=== PATIENT | female | born 1960 | race African-American/Black ===

== ENCOUNTER 2025-03-27 09:22 | Outpatient (AMB) | payer OTHER, SELFPAY ==
--- NOTE | 2025-03-27 09:41 | A.PHYSOV_ITS ---
Vital Signs 03/27/25 09:44 Height 56 ft Weight 150 lb BMI 0.2 Intake Visit Reasons: NPV LAURIE REF BACK PAIN Intake Note: Patient is a 65 year old female here today for a new patient appointment . Patient is having low back pain. 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 She initially injured her back in the , and the pain resolved after therapy but has recurred in recent months. The pain is localized to the lower back and pelvis, without leg radiation, and is worsened by sitting. She manages the pain with Tylenol, which provides some relief, and has discontinued physical therapy due to increased pain and cost. 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 She finds that her symptoms limit her ability to perform her activities of daily living. She has a pain level today a 6/10. She denies any incontinence, saddle anesthesia urinary retention. I reviewed the referring provider's note prior to consultation. Results - Imaging: X-ray lumbar spine 12/25/2004 impression: Degenerative changes have progressed since the previous study. The images were reviewed by me and I agree with the radiology report. [facility] Surgical History H/O: hysterectomy (Unknown) Social History (Updated 03/27/25 @ 09:47 by Antonia Kingsley MA) Alcohol intake: current Alcohol intake frequency: does not drink Patient Tobacco Use Status: Never used Tobacco Current occupational status: employed Review of Systems Narrative Review of Systems - Musculoskeletal: Reports chronic low back pain, denies leg pain - Neurological: Denies radicular symptoms Physical Exam Exam Exam: Physical Exam Lumbar Spine: Examination of her lumbar spine, there is no visible swelling or deformity. She is tender to lower lumbar facet. She is otherwise nontender. Full range of motion of lumbar spine. She does have facet loading. Special Tests: Lhermittes sign was negative Heel Toe walk is normal Left straight leg raise: Negative Right straight leg raise: Negative Special tests Orville test is negative Ganslen's test is negative SI Joint compression test negative Parmjit test negative Piriformis stretch is negative Lower Extremities: Full range of motion bilateral lower extremities. No calf pain or edema. Neuro: Sensation: Intact to lower extremities bilaterally Strength L2 (Psoas): 5/5 on the left and 5/5 on the right. L3 (Quads): 5/5 on the left and 5/5 on the right. L4 (Ant tibialis): 5/5 on the left and 5/5 on the right. L5 (EHL) 5/5 on the left and 5/5 on the right. S1 (Gastroc): 5/5 on the left and 5/5 on the right. DTR L4: (Patellar) Left 2 Right 2 S1: (Achilles) Left 1 Right 1 Babinski Downgoing No pathologic clonus. No involuntary movement. 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 1. Chronic Low Back Pain The patient presents with chronic low back pain, initially injured in the and recently recurring. An MRI is recommended to evaluate the discs and nerves, as the X-ray only shows bone structure. The patient is advised to continue exercises learned in therapy and consider natural anti-inflammatory supplements like turmeric. Patient started physical therapy on January. She was unable to complete secondary to financial issues. She has been completing her physician directed home exercise plan and consents. She finds that her symptoms limit her ability to perform her activities of daily living, we are considering epidural injection versus surgery. Recommend MRI of the lumbar spine Patient Instructions - Continue exercises learned in physical therapy to maintain activity levels. - Consider using turmeric as a natural anti-inflammatory supplement. Orders: Orders MR lumbar spine wo con Today M51.16 - Intervertebral disc disorders with radiculopathy, lumbar region Coding Level of Care Code Tele New Pt Level 4 (46060) Diagnoses Lumbar radiculopathy M54.16 Lumbar spondylosis M47.816
--- OUTSIDE RECORDS SUMMARY | 2025-03-27 10:43 | XMS_ITS | Encounter Summary ---
Author Organization [facility] Address [address] [place] [address] Care Team Providers Care Enrobing Machine Corder Name Role Phone Florencia Traore MD Primary Care Provider [phone] Encounter Details Date Type Department Care Team (Late Contact Info) Description 03/19/2025 Results Follow-Up [address] [place] [id number] Donna Daniel RN Social History Tobacco Use Types Packs/Day Years Used Date Smoking Tobacco: Never Smokeless Tobacco: Never Alcohol Use Standard Drinks/Week Comments Yes 0 (1 standard drink = 0.6 oz pur e alcohol) Comments No Sex and Gender Information Value Date Recorded Sex Assigned at Not on file Legal Sex Female 8:35 PM EST Gender Identity Not on file Sexual Orientation Not on file documented as of this encounter Progress Notes * Donna Daniel RN - 03/19/2025 2:40 PM EST LM for patient. documented in this encounter Plan of Treatment Upcoming Encounters Date Type Department Care Team (Late st Contact Info) Description 06/24/2025 8:30 AM EST Office Visit Internal Medicine - [address] [phone] Scott Reddy NP [address] [place] [address] 09/16/2025 1:00 PM EDT Office Visit Infectious Disease [facility] [address] [facility] [address] [place] [phone] Stephie Neely MD [address] [facility] [address] [place] [address] documented as of this encounter Visit Diagnoses Not on filedocumented in this encounter Care Teams Enrobing Machine Corder Relationship Specialty Start Date End Date Florencia Traore MD [address] [place] [phone] PCP - General Internal Medicine 02/07/25 documented as of this encounter
--- OUTSIDE RECORDS SUMMARY | 2025-03-27 10:43 | XMS_ITS | Clinical Summary ---
Author Organization [address] [place] [address] [place] [phone] Phone Care Team Providers Care Veneer Taping Machine Offbearer Name Role Phone Florencia Traore MD Primary Care Provider [phone] Allergies Active Allergy Reactions Criticality Noted Date Comments Oxycodone-Acetaminophen Itching 01/03/2006 Medications B complex tablet Take 1 tablet by mouth 1 (one) time each day. Active ascorbic acid, vitamin C, 500 mg capsule Take 1 capsule by mouth. Active albuterol HFA (ProAir HFA) 90 mcg/actuation inhaler Inhale 2 puffs by mouth every 4 (four) hours if needed for wheezing or shortness of breath. 8.5 g 04/23/20 24 025 Active cholecalciferol , vitamin D3, 10 mcg (400 unit) tablet,chewable Chew 1 tablet 1 (one) time each day. Active acetaminophen (TYLENOL 8 HOUR) 650 mg 8 hr tablet Take 1 tablet (650 mg total) by mouth every 8 (eight) hours if needed. 03/12/20 21 Active cetirizine (ZyrTEC) 10 mg tablet Take 1 tablet (10 mg total) by mouth 1 (one) time each day. 14 each 05/03/20 24 Active fluticasone propionate (FLONASE) 50 mcg/actuation nasal spray Administer 1 spray into each nostril 2 (two) times a day. Shake gently. Before first use, prime pump. After use, clean tip and replace cap. 16 g 05/03/20 24 Active diclofenac (Cataflam) 50 mg tablet Take 1 tablet (50 mg total) by mouth 2 (two) times a day for 10 days. 20 each 08/01/19 25 Active methocarbamoL (ROBAXIN) 500 mg tablet Take 1 tablet (500 mg total) by mouth at bedtime as needed for muscle spasms. 30 tablet 08/01/19 25 Active triamcinolone (KENALOG) 0.025 % creamIndication s:Eczema, unspecified type Apply topically 1 (one) time each day if needed for irritation. 30 g 12/20/19 25 Active aspirin 81 mg chewable tabletIndicatio ns:Atherosclero sis Chew 1 tablet (81 mg total) 1 (one) time each day. 90 each 1 12/27/19 25 Active atorvastatin (LIPITOR) 10 mg tabletIndicatio ns:Hyperlipidem ia, unspecified TAKE 1 TABLET BY MOUTH 1 TIME EACH DAY. 90 tablet 1 02/12/20 25 Active amLODIPine (NORVASC) 10 mg tablet TAKE 1 TABLET BY MOUTH EVERY DAY 90 tablet 1 03/05/20 25 Active amoxicillin (AMOXIL) 500 mg capsule TAKE 1 CAPSULE BY MOUTH EVERY 6 HOURS UNTIL FINISHED 01/03/20 25 Active tretinoin (RETIN-A) 0.1 % cream APPLY PEA-SIZED AMOUNT TO FACE AT BEDTIME 04/24/20 24 Active triamcinolone (KENALOG) 0.1 % ointment APPLY TO ARMS/ABDOMEN/L EGS 2X/DAY NEEDED FOR FLARES, DECREASE TO EVERY OTHER DAY W/IMPROVEMENT 10/24/19 25 Active amLODIPine (NORVASC) 10 mg tablet TAKE 1 TABLET BY MOUTH 1 TIME EACH DAY. 90 tablet 12/03/19 25 025 Discontinued Active Problems Problem Noted Date Diagnosed Date Atherosclerosis 12/26/2024 Overview (12/26/2024): On lumbosacral x-ray in 12/2024; currently on a statin, started baby aspirin Hypertension 04/20/2021 Tubular adenoma of colon 03/24/2021 Overview (04/30/2024): 03/2021, tubular adenona x 3. 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 Nuclear sclerosis 02/15/2011 Hemorrhage of gastrointestinal tract 04/24/2006 Overview (04/30/2024): IMO update Encounters Date Type Department Care Team Description 03/20/2025 Results Follow-Up Internal Medicine - [address] [phone] Theresa Bourne MA 03/19/2025 8:56 AM EST - 03/19/2025 11:59 PM EST Hospital Encounter Radiology Department - [address] [phone] Encounter for screening mammogram for breast cancer Discharge Disposition: Home or Self Care 03/19/2025 Results Follow-Up Infectious Disease [address] [phone] Donna Daniel RN 03/13/2025 1:50 PM EDT Lab Draw Station - [address] [place] [address] [address] [place] [address] 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 PM EDT Office Visit Infectious [address] [phone] Stephie Neely MD 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/2025 Telephone Internal Medicine - [facility] [address] [place] [address] Florencia Traore MD 02/06/2025 5:30 PM EDT Treatment [facility] [address] [phone] Jarrett Peralta, JAY Back pain, unspecified back location, unspecified back pain laterality, unspecified chronicity (Primary Dx) 01/30/2025 6:00 PM EDT Treatment [facility] [address] [phone] Trey, Donovan M, JOINT RUNNER Back pain, unspecified back location, unspecified back pain laterality, unspecified chronicity (Primary Dx) 01/27/2025 3:30 PM EDT Treatment [address] [phone] Elver Upton M, PT Back pain, unspecified back location, unspecified back pain laterality, unspecified chronicity (Primary Dx) 01/23/2025 9:00 AM EDT Evaluation [address] [address] BrownRony, PT Back pain, unspecified back location, unspecified back pain laterality, unspecified chronicity 01/23/2025 Plan of Care Documentation [address] [phone] 12/25/2024 3:02 PM EDT - 12/25/2024 11:59 PM EDT Hospital [facility]counter [facility] [address] [place] [phone] Back pain, unspecified back location, unspecified back pain laterality, unspecified chronicity Discharge Disposition: Home or Self Care from Last 3 Months Immunizations Immunization Administration Dates Next Due Influenza Quadravalent, MDCK , 0.5ml, preservative free (Flucelvax) 6mo and older 01/29/2020,03/19/2019,02/14/2017 Influenza trivalent, 0.5mL ( Fluzone High-dose) 65yo and older 01/31/2025 Influenza trivalent, 0.5mL, preservative free (Fluarix; FluLaval; Fluzone) ages 6mo and older (Afluria) 3 years and older 01/24/2023,02/07/2022,03/19/2021,2015,04/16/2012 Pfizer SARS-CoV-2 COVID-19, mRNA, LNP-S, preservative free 08/27/2020,08/06/2020 Td Tetanus diptheria (Tdvax) 7yo and older 06/26/2002 Tdap Tetanus diptheria acell ular pertussis (Boostrix; Adacel) 7yo and older 02/07/2022,12/19/2011 Zoster recombinant (Shingrix ) 19yo and older 04/13/2021,12/17/2020 Surgical History Surgery Date Site/Laterality Comments HYSTERECTOMY 06/18 PROCEDURE: HISTORICAL HYSTERECTOMY; COMMENT: ; fibroids OTHER SURGICAL HISTORY 06/20 PROCEDURE: MAMMOGRAM; COMMENT: neg Medical History Medical History Date Comments Hyperlipidemia 01/07/2012 DX:Hyperlipidemi a Obesity (BMI 30.0-34.9) 11/29/2019 DX:Obesi ty (BMI 30.0-34.9) Hypertension DX:Hypertension Tubular adenoma of colon 03/24/2021 DX:Tubu lar adenoma of colon; COMMENT: 03/2021, tubular adenona x 3. Repeat in 5 years Tubular adenoma of colon 03/24/2021 DX:Tubu lar adenoma of colon Hypertension 04/20/2021 DX:Hypertension Hypertension 04/20/2021 Family History Medical History Relation Name Comments Stroke Aunt pat Arthritis Father Diabetes Father Hypertension Father Lung cancer Father ? lung CA being treated for spots on lung Thyroid disease Father Hypertension Mother Throat cancer Uncle paternal uncle Blindness Neg Hx Breast cancer Neg Hx Cataracts Neg Hx Glaucoma Neg Hx Macular degeneration Neg Hx Strabismus Neg Hx Relation Name Status Comments Aunt Father Alive Mother Alive Uncle Social History Tobacco Use Types Packs/Day Years Used Date Smoking Tobacco: Never Smokeless Tobacco: Never Tobacco Cessation:Counseling Given: Not Answered Alcohol Use Standard Drinks/Week Comments Yes 0 (1 standard drink = 0.6 oz pur e alcohol) Comments No Sex and Gender Information Value Date Recorded Sex Assigned at Not on file Legal Sex Female 8:35 PM EST Gender Identity Not on file Sexual Orientation Not on file Obstetrics History Para Term AB IAB SAB Ectopic Multiple Livin g Live Births 1 05 15 1 Date Outcome GA Total Labor Labor/2nd/3rd Weight Sex Type Anes PTL Jasmyne A1 A5 Name Clin Term Last Filed Vital Signs Vital Sign Reading Time Taken Comments Blood Pressure 146/71 03/13/2025 1:07 PM EDT Pulse 60 03/13/2025 1:07 PM EDT Temperature 36.2 C (97.1 F) 03/13/2025 1:07 PM EDT Respiratory Rate - - Oxygen Saturation 97% 03/13/2025 1:07 PM EDT Inhaled Oxygen Concentration - - Weight 73 kg (161 lb) 03/13/2025 1:07 PM EDT Height 167.6 cm (5' 6 ) 12/19/2024 12:07 PM EDT Body Mass Index 25.99 12/19/2024 12:07 PM EDT Plan of Treatment Upcoming Encounters Date Type Department Care Team (Late st Contact Info) Description 06/24/2025 8:30 AM EST Office Visit Internal Medicine - [facility] [address] [place] [address] Scott Reddy, AMISHA [address] [place] [address] 09/16/2025 1:00 PM EDT Office Visit Infectious Disease - [place] [address] [facility] [address] [place] [address] Stephie Neely MD 175 [facility] [address] [place] [address] Health Maintenance Due Date Last Done Comments Pneumococcal Vaccine: 50+ Years (1 of 1 - PCV) 2009 Osteoporosis Screening (Bone Density Screening) 04/23/2022 Social Influencers of Health Screening 04/23/2022 Falls Risk Assessment 2024 Depression Screening 05/15/2024 COVID-19 Vaccine ( season) 2025 03/17/2021, 08/27/2020, 08/06/2020 Hypertension/CHF/CAD Annual BMP Blood Test 12/19/2025 12/19/2024, 09/05/2024, 06/04/2024, Additional history exists Colorectal Cancer Screening: Colonoscopy 03/16/2026 03/16/2021 Breast Cancer Screening 03/19/2027 03/19/20, 02/21/2024, 02/21/2024, Additional history exists Cholesterol Screening (Lipid Panel) 12/19/2029 12/19/2024, 03/07/2024, 03/07/2024 DTaP,Tdap,and Td Vaccines (4 - Td or Tdap) 02/08/2032 02/07/2022, 12/19/2011, 06/26/2002 Zoster Vaccines Completed 04/13/2021, 12/17/2020 RSV Immunization Adult Patients Completed 01/23/2024 Hepatitis C Screening Completed 06/04/2024, 015 Influenza Vaccine Completed 01/31/2025, , 01/24/2023, Additional history exists HIB Vaccines Aged Out No longer eligi ble based on patient's age to complete this topic HPV Vaccines Aged Out No longer eligi ble based on patient's age to complete this topic Hepatitis A Vaccines Aged Out No long er eligible based on patient's age to complete this topic Hepatitis B Vaccines Aged Out No long er eligible based on patient's age to complete this topic IPV Vaccines Aged Out No longer eligi ble based on patient's age to complete this topic MMR Vaccines Aged Out No longer eligi ble based on patient's age to complete this topic Meningococcal ACWY Vaccine Aged Out N o longer eligible based on patient's age to complete this topic Meningococcal B Vaccine Aged Out No l onger eligible based on patient's age to complete this topic RSV Immunization Patients Under 20 months Aged Out No longer eligible based on patient's age to complete this topic Varicella Vaccines Aged Out No longer eligible based on patient's age to complete this topic Procedures Procedure Name Priority Date/Time Associated Diagnosis Comments MG MAMMO DIGITAL SCREENING W NITO BILAT Routine 03/19/2025 9:09 AM EST Encounter for screening mammogram for breast cancer TREPONEMA PALLIDUM ANTIBODY Routine 03/13/2025 1:46 PM EDT Late latent syphilis RAPID PLASMA REAGIN WITH REFLEX TO TITER Routine 03/13/2025 1:46 PM EDT Late latent syphilis TREPONEMA PALLIDUM ANTIBODY WITH REFLEX TO RPR AND PARTICLE AGGLUTINATION Routine 03/13/2025 1:46 PM EDT Late latent syphilis XR LUMBAR SPINE 4+ VIEWS Routine 12/25/2024 3:11 PM EDT Back pain, unspecified back location, unspecified back pain laterality, unspecified chronicity COMPREHENSIVE METABOLIC PANEL Routine 12/19/2024 1:00 PM EDT Hyperlipidemia, unspecified hyperlipidemia type Primary hypertension LIPID PANEL WITH REFLEX TO DIRECT LDL Routine 12/19/2024 1:00 PM EDT Hyperlipidemia, unspecified hyperlipidemia type HEPATITIS C ANTIBODY Routine 06/04/2024 3:29 PM EST Positive serology for syphilis Late latent syphilis HM COLONOSCOPY Routine 03/16/2021 from Last 3 Months or Most Recently Relevant to Health Maintenance Results * MG Mammo Digital Screening w Nito bilat (03/19/2025 9:09 AM EST) Anatomical Region Laterality Modality Breast Bilateral Mammography 03/20/2025 11:2 8 AM EST Impressions 03/20/2025 11:28 AM EST No mammographic evidence of malignancy. BREAST DENSITY: B - There are scattered areas of fibroglandular density. BI-RADS CATEGORY: 1 - NEGATIVE RECOMMENDATION: Screening bilateral mammogram is recommended in 1 year. MAMMO LOCATION: [facility], [address] [place] [address], [phone], . -------- FINAL REPORT -------- Dictated By: Crystal Wells Dictated Date: 03/20/2025 11:28 ET Assigned Physician: Crystal Wells Reviewed and Electronically Signed By: Crystal Wells Signed Date: 03/20/2025 11:28 ET Workstation ID: [id number] Transcribed By: Self Edit Transcribed Date: 03/20/2025 11:28 ET Narrative 03/20/2025 11:28 AM EST EXAM: Screening Mammogram CLINICAL: 65 years old, Female, routine annual exam. COMPARISON: 02/21/2024 and as far back as 01/28/2021 TECHNIQUE: Bilateral MLO and CC views were obtained digitally with 3-D mammogram (digital breast tomosynthesis). Computer-aided detection was utilized in evaluation of this exam (CAD). FINDINGS: No new suspicious mass, architectural distortion, or suspicious calcifications. Procedure Note Crystal Wells MD - 03/20/2025 EXAM: Screening Mammogram CLINICAL: 65 years old, Female, routine annual exam. COMPARISON: 02/21/2024 and as far back as 01/28/2021 TECHNIQUE: Bilateral MLO and CC views were obtained digitally with 3-Dmammogram (digital breast tomosynthesis). Computer-aided detection wasutilized in evaluation of this exam (CAD). FINDINGS: No new suspicious mass, architectural distortion, or suspiciouscalcifications. IMPRESSION: No mammographic evidence of malignancy. BREAST DENSITY: B - There are scattered areas of fibroglandular density. BI-RADS CATEGORY: 1 - NEGATIVE RECOMMENDATION: Screening bilateral mammogram is recommended in 1 year. MAMMO LOCATION: [facility], [address] [place] [address], [phone], . -------- FINAL REPORT -------- Dictated By: Crystal Wells Dictated Date: 03/20/2025 11:28 ET Assigned Physician: Crystal Wells Reviewed and Electronically Signed By: Crystal Wells Signed Date: 03/20/2025 11:28 ET Workstation ID: [id number] Transcribed By: Self Edit Transcribed Date: 03/20/2025 11:28 ET us Uziel Guerrero MD IMG BI PROCEDURES Final R esult * (ABNORMAL) Treponema pallidum antibody with reflex to RPR and particle agglutination (03/13/2025 1:46 PM EDT) T. Pallidum Antibodies Positive( A) Negative LAB CHEMISTRY METHOD 03/13/2025 6:42 PM EDT [facility] ([facility]) [facility] Blood Venous blood specimen / Unknown Venipuncture / Unknown 03/13/2025 1:46 PM EDT 03/13/2025 1:46 PM EDT us Stephie Neely MD LAB BLOOD ORDERABLES Final Resul t [facility] [address] [place] [address], [place] [phone] * Rapid plasma reagin with reflex to titer (03/13/2025 1:46 PM EDT) RPR Nonreactive Nonreactive 2025 1:26 PM EDT [facility] Blood Venous blood specimen / Unknown Venipuncture / Unknown 03/13/2025 1:46 PM EDT 03/13/2025 6:42 PM EDT us Stephie Neely MD LAB BLOOD ORDERABLES Final Resul t Performing Organization Address [facility] Co de Phone Number [facility] [address] [place] [address], [place] [phone] * (ABNORMAL) Treponema pallidum antibody (03/13/2025 1:46 PM EDT) Pathologist [facility] Treponema pallidum Antibody (TP-PA) Reactive( A) Nonreactive 03/17/2025 1:25 PM EST [facility] Comment: Test performed at [facility], [address], [place] [address] Catherine Pascual MD, PhD - Web Coordinator Blood Venous blood specimen / Unknown Venipuncture / Unknown 03/13/2025 1:46 PM EDT 2025 1:25 PM EDT us Stephie Neely MD LAB BLOOD ORDERABLES Final Resul t [facility] [address] [place], [place] [id number] * XR Lumbar Spine 4+ Views (12/25/2024 3:11 PM EDT) Anatomical Region Laterality Modality Spine, L-spine Radiographic Alessia ging 12/25/2024 4:04 PM EDT Impressions 12/25/2024 4:06 PM EDT Degenerative changes have progressed since the previous study. -------- FINAL REPORT -------- Dictated By: Roula Cohn Dictated Date: 12/25/2024 16:04 ET Assigned Physician: Roula Cohn Reviewed and Electronically Signed By: Roula Cohn Signed Date: 12/25/2024 16:06 ET Workstation ID: [id number] Transcribed By: Self Edit Transcribed Date: 12/25/2024 16:04 ET Narrative 12/25/2024 4:06 PM EDT LUMBOSACRAL SPINE, 5 VIEWS INCLUDING OBLIQUES HISTORY: Back pain. Prior: Lumbar spine 11/22/2011. FINDINGS: There is straightening of the normal lordotic curve. No fractures are seen. There is disc space narrowing with endplate spurring and disc desiccation at L2- 3, L3-4, L4-5, and L5-S1. There is facet hypertrophy at the lower lumbar spine. There is atherosclerosis. Procedure Note Roula Cohn MD - 12/25/2024 LUMBOSACRAL SPINE, 5 VIEWS INCLUDING OBLIQUES HISTORY: Back pain. Prior: Lumbar spine 11/22/2011. FINDINGS: There is straightening of the normal lordotic curve. No fractures are seen. There is disc space narrowing with endplate spurring and disc desiccationat L2- 3, L3-4, L4-5, and L5-S1. There is facet hypertrophy at the lower lumbar spine. There is atherosclerosis. IMPRESSION: Degenerative changes have progressed since the previous study. -------- FINAL REPORT -------- Dictated By: Roula Cohn Dictated Date: 12/25/2024 16:04 ET Assigned Physician: Roula Cohn Reviewed and Electronically Signed By: Roula Cohn Signed Date: 12/25/2024 16:06 ET Workstation ID: [id number] Transcribed By: Self Edit Transcribed Date: 12/25/2024 16:04 ET us Scott Reddy IT APPLICATIONS MANAGER IMG XR PROCEDURES Final Result * Lipid panel with reflex to direct LDL (12/19/2024 1:00 PM EDT) Cholesterol 166 0 - 200 mg/dL LAB CHEMISTRY METHOD 12/19/2024 4:49 PM EDT [facility] Triglycerides 32 0 - 150 mg/dL LAB CHEMISTRY METHOD 12/19/2024 4:49 PM EDT [facility] HDL 72 >=40 mg/dL LAB CHEMISTRY METHOD 12/19/2024 4:49 PM EDT [facility] LDL Calculated 88 0 - 100 mg/dL LAB CHEMISTRY METHOD 12/19/2024 4:49 PM EDT [facility] Comment:Estimated LDL Calcul ated using equation: Total cholesterol - HDL cholesterol - (Triglycerides/5) VLDL Cholesterol Román 6.4 mg/dL LAB CHEMISTRY METHOD 12/19/2024 4:49 PM EDT [facility] Non HDL Chol. (LDL+VLDL) 94 <145 mg/dL LAB CHEMISTRY METHOD 12/19/2024 4:49 PM EDT [facility] Chol/HDL Ratio 2.3 0.0 - 4.4 LAB CHEMISTRY METHOD 12/19/2024 4:49 PM EDT [facility] Blood Venous blood specimen / Unknown Venipuncture / Unknown 12/19/2024 1:00 PM EDT 12/19/2024 1:00 PM EDT us Scott Reddy NP LAB BLOOD ORDERABLES Final Res ult [facility] [address] [place] [address], * (ABNORMAL) Comprehensive metabolic panel (12/19/2024 1:00 PM EDT) [facility] Sodium 141 133 - 145 mmol/L LAB CHEMISTRY METHOD 12/19/2024 4:46 PM EDT [facility] Potassium 4.2 3.5 - 5.5 mmol/L LAB CHEMISTRY METHOD 12/19[facility]2024 [facility] Chloride 107 96 - 110 mmol/L LAB CHEMISTRY METHOD 12/19/2024 4:46 PM [facility] CO2 31 21 - 32 mmol/L LAB CHEMISTRY METHOD 12/19/2024 4:46 PM [facility] Anion Gap 3 3 - 11 LAB CHEMISTRY METHOD 12/19/2024 4:46 PM [facility] Glucose 85 70 - 100 mg/dL LAB CHEMISTRY METHOD 12/19/2024 4:46 PM [facility] BUN 15 5 - 25 mg/dL LAB CHEMISTRY METHOD 12/19/2024 4:46 PM [facility] Creatinine 0.40(L) 0.50 - 1.10 mg/dL LAB CHEMISTRY METHOD 12/19/2024 4:46 PM [facility] eGFR 110 >=60 mL/min/1. 73m2 LAB CHEMISTRY METHOD 12/19/2024 4:46 PM [facility] Comment:Calculation based on the Chronic Kidney Disease Epidemiology Collaboration (CKD-EPI) equation refit without adjustment for race. BUN/Creatinine Ratio 37.5 LAB CHEMISTRY METHOD 12/19/2024 4:46 PM [facility] Calcium 9.2 8.5 - 10.5 mg/dL LAB CHEMISTRY METHOD 12/19/2024 4:46 PM [facility] AST (SGOT) 17 10 - 42 unit/L LAB CHEMISTRY METHOD 12/19/2024 4:46 PM [facility] ALT (SGPT) 25 10 - 60 unit/L LAB CHEMISTRY METHOD 12/19/2024 4:46 PM [facility] Alkaline Phosphatase 91 42 - 121 unit/L LAB CHEMISTRY METHOD 12/19/2024 4:46 PM [facility] Total Protein 6.7 6.0 - 8.0 g/dL LAB CHEMISTRY METHOD 12/19/2024 4:46 PM [facility] Albumin 3.9 3.2 - 5.0 g/dL LAB CHEMISTRY METHOD 12/19/2024 4:46 PM EDT [facility] Total Bilirubin 0.4 0.0 - 1.4 mg/dL LAB CHEMISTRY METHOD 12/19/2024 4:46 PM EDT [facility] Blood Venous blood specimen / Unknown Venipuncture / Unknown 12/19/2024 1:00 PM EDT 12/19/2024 1:00 PM EDT Scott Reddy NP LAB BLOOD ORDERABLES Final Res ult Performing Organization Address City/[facility]/ZIP Co de Phone Number [facility] [address] [place] [address], [place] [phone] * Hepatitis C antibody (06/04/2024 3:29 PM EST) Hepatitis C Antibody Negative Negative LAB CHEMISTRY METHOD 06/04/2024 7:50 PM EST [facility] Blood Venous blood specimen / Unknown Venipuncture / Unknown 06/04/2024 3:29 PM EST 06/04/2024 3:29 PM EST Stephie Neely MD LAB BLOOD ORDERABLES Final Resul t Performing Organization Address City/[facility]/ZIP Co de Phone Number [facility] [address] [place] [address], [place] [phone] * Hm Colonoscopy (03/16/2021) Colonoscopy completed Anatomical Region Laterality Modality Other Historical Provider HEALTH MAINTENANCE Final Result from Last 3 Months or Most Recently Relevant to Health Maintenance Insurance [facility] [id number] [id number] Care Teams Veneer Taping Machine Offbearer Relationship Specialty Start Date End Date Florencia Traore MD [address] [facility] [place] [address] PCP - General Internal Medicine 02/07/25
--- OUTSIDE RECORDS SUMMARY | 2025-03-27 10:43 | XMS_ITS | Encounter Summary ---
Author Organization [facility] Address [address] [place] [address] Care Team Providers Care Group Leader Wafer Polishing Name Role Phone Florencia Traore MD Primary Care Provider [phone] Encounter Details Date Type Department Care Team (Late st Contact Info) Description 03/20/2025 Results Follow-Up Internal Medicine - [address] [phone] Theresa Bourne MA Social History Tobacco Use Types Packs/Day Years [...] on file documented as of this encounter Plan of Treatment Upcoming Encounters Date Type Department Care Team (Late st Contact Info) Description 06/24/2025 8:30 AM EST Office Visit Internal Medicine - [address] [phone] Scott Reddy NP [address] [place] [address] 09/16/2025 1:00 PM EDT Office Visit Infectious Disease - [place] [address] [phone] Stephie Neely MD [address] [address] documented as of this encounter Visit Diagnoses Not on filedocumented in this encounter Care Teams Group Leader Wafer Polishing Relationship Specialty Start Date End Date Florencia Traore MD [address] [facility] [place] [phone] PCP - General Internal Medicine 02/07/25 documented as of this encounter
== END 2025-03-27 10:46 | disposition home or self-care (01) ==
PROVIDERS: Visit Provider Physician Assistant
DX: M54.16 Radiculopathy, lumbar region (principal); M47.816 Spondylosis without myelopathy or radiculopathy, lumbar region
CPT/HCPCS: 99204

== ENCOUNTER 2025-05-12 15:05 | Outpatient (AMB) | payer OTHER, SELFPAY ==
--- NOTE | 2025-05-12 15:39 | A.PHYSOV_ITS ---
Intake Visit Reasons: MRI followup Intake Note: Patient is a 65 year old female here today for MRI follow up. Liberal Arts Teacher Required: No Allergies No Known Allergies Allergy (Verified 03/27/25 09:45) HPI Comments Details: History of Present Illness The patient is a 65 year old female presenting for evaluation of low back pain. She reports an increase in her back pain over the last few days, which was particularly severe last night. The pain is localized to the central low back and does not radiate into her buttocks or legs. She occasionally experiences a burning sensation in her back after sitting for a while, which improves upon lying down. She also reports intermittent pain under her stomach. She currently takes Tylenol for pain but states she does not like taking pills. Patient did complete a 6 week physician directed home exercise plan focusing on her low back without relief. Patient has been using Tylenol for pain. A review of her MRI reveals moderate degenerative disc disease with some severe areas, squished discs, and arthritis. There is severe bilateral foraminal narrowing and severe narrowing on the left at one level. The patient is not on blood thinners. I ordered MRI of her lumbar spine and we are reviewing it in person today. Pain Description - Location: The pain is located in the central low back. - Radiation: The pain does not radiate to the buttocks or legs. - Quality: The patient describes the pain as a burning sensation at times. - Severity: The patient rates her pain as lots of pain and reports it has been really bad recently. - Modifying factors: The pain is exacerbated by leaning backward and by sitting for a prolonged period. - Relieving factors: Lying down helps to alleviate the burning sensation. - Associated Symptoms: The patient reports intermittent pain under her stomach. Results - Imaging: An MRI of the back showed moderate degenerative disc disease with some severe areas, squished discs, arthritis, severe bilateral foraminal narrowing, and severe narrowing on the left at one level. [facility] Surgical History H/O: hysterectomy (Unknown) Social History Alcohol intake: current Alcohol intake frequency: does not drink Patient Tobacco Use Status: Never used Tobacco Current occupational status: employed Review of Systems Narrative Review of Systems - Musculoskeletal: Reports central low back pain, sometimes with a burning quality. - Neurological: Denies radiating pain to the legs or buttocks. - Abdominal: Reports intermittent pain under the stomach. Physical Exam Exam Exam: Physical Exam Lumbar Spine: Examination of her lumbar spine, there is no visible swelling or deformity. She is tender to lower lumbar facet. She is otherwise nontender. Full range of motion of lumbar spine. She does have facet loading. Special Tests: Lhermittes sign was negative Heel Toe walk is normal Left straight leg raise: Negative Right straight leg raise: Negative Special tests Orville test is negative Ganslen's test is negative SI Joint compression test negative Parmjit test negative Piriformis stretch is negative Lower Extremities: Full range of motion bilateral lower extremities. No calf pain or edema. Neuro: Sensation: Intact to lower extremities bilaterally Strength L2 (Psoas): 5/5 on the left and 5/5 on the right. L3 (Quads): 5/5 on the left and 5/5 on the right. L4 (Ant tibialis): 5/5 on the left and 5/5 on the right. L5 (EHL) 5/5 on the left and 5/5 on the right. S1 (Gastroc): 5/5 on the left and 5/5 on the right. DTR L4: (Patellar) Left 2 Right 2 S1: (Achilles) Left 1 Right 1 Babinski Downgoing No pathologic clonus. No involuntary movement. Assessment & Plan Assessment & Plan (1) Lumbar radiculopathy: Code(s): M54.16 - Radiculopathy, lumbar region Category: Medical (2) Lumbar spondylosis: Code(s): M47.816 - Spondylosis without myelopathy or radiculopathy, lumbar region Category: Medical (3) Vertebrogenic low back pain: Code(s): M54.51 - Vertebrogenic low back pain Category: Medical Plan Pain Management - Analgesia: The patient currently uses Tylenol, and options of Tylenol Arthritis or anti-inflammatory medications like naproxen and ibuprofen were discussed. - Activities of daily living: Pain impacts the patient's ability to sit for extended periods. - Aberrant drug-related behaviors: The patient expressed a dislike for taking too many pills. Plan Patient was informed and verbally consented to the use of an ambient scribe for clinic note documentation during this visit. 1. Low Back Pain The patient's axial low back pain is consistent with her MRI findings of moderate degenerative disc disease and arthritis, with pain on extension suggesting facet joint involvement. I recommend bilateral L4-5, L5-S1 facet injection and she is eager to proceed. Despite severe foraminal narrowing, she does not exhibit radicular symptoms. The plan is to proceed with lumbar medial branch block injections to target her arthritis. This will consist of four cortisone injections performed under X-ray guidance on the same day, with the goal of at least 50% pain reduction for 3-6 months. Prior authorization will be obtained from her insurance. For interim pain management, she can use Tylenol or anti-inflammatories like naproxen or ibuprofen. A follow-up visit is scheduled for 3 weeks after the procedure. 2. Abdominal Pain, Unspecified The patient reports intermittent pain under her stomach. It is unlikely that this symptom is related to her lumbar spine condition. She was advised to see her PLANT ANATOMY TEACHER or a infant toddler lead teacher for further evaluation. We will observe if her abdominal pain changes after the back injections, although a connection is not anticipated. Discussion Notes I reviewed the patient's MRI findings with her, explaining that she has moderate degenerative disc disease and arthritis, which are the likely causes of her low back pain. I noted that while there is severe narrowing where the nerves exit, it does not appear to be causing nerve pain in her legs. We discussed treatment options, and the patient expressed interest in proceeding with injections. I explained that the plan is to target her arthritis with cortisone injections, which will involve four separate injections performed on the same day. I informed her that the goal is to achieve at least a 50% reduction in her pain for three to six months. I reviewed the risks of the procedure, including infection, bleeding, and nerve damage, and explained that it is performed under X-ray guidance to ensure safety. I advised that we will seek insurance authorization prior to scheduling. I also addressed her concern about abdominal pain, explaining that it is unlikely to be related to her low back condition and recommended she follow up with her PLANT ANATOMY TEACHER or a infant toddler lead teacher. I reassured her that her MRI findings are not severe enough to warrant consideration of surgery at this time. She will have a follow-up visit with me three weeks after the injection procedure. Patient Instructions - For pain, you can take Tylenol, or you may try an anti-inflammatory medication like ibuprofen (Advil, Motrin) or naproxen (Aleve) to see if it provides better relief. - Our office will request authorization from your insurance company for cortisone injections for your back. - Once the injections are approved, our staff will contact you to schedule the appointment. - The procedure will involve four injections on the same day and will be performed in our office. You will likely want to take that day off. - Please follow up with your primary doctor or a specialist like an PLANT ANATOMY TEACHER for the pain you are having under your stomach, as this is likely not related to your back. - You will need to schedule a follow-up appointment with me three weeks after your injection procedure. Coding Level of Care Code Est Pt Level 3 (69133) Diagnoses Lumbar radiculopathy M54.16 Lumbar spondylosis M47.816 Vertebrogenic low back pain M54.51
--- OUTSIDE RECORDS SUMMARY | 2025-05-12 17:21 | XMS_ITS ---
Author Organization [address] [place] [address] [place] [phone] Phone Care Team Providers Care Joint Filler Name Role Phone Florencia Traore MD Primary Care Provider Community Health Worker Program Status:Identified (Enrolling) Start date:05/02/2025 Enrollment reason:Hypertension management Overview Community Health Worker Program Case Team Name Relationship Phone Yamel Gusman(Responsible Staff) Community Hea lth Worker Continued Care and Services Coordination
--- OUTSIDE RECORDS SUMMARY | 2025-05-12 17:21 | XMS_ITS ---
Author Name [facility] Organization Unknown History of Medication Use Medication Directions Dispensed Refills Start Date End Date Stat us guaiFENesin (ROBITUSSIN) 100 mg/5 mL liquid Take 10 mL (200 mg total) by mouth 3 (three) times a day if needed for cough for up to 10 days. 05/23/2024 06/03/2024 active amLODIPine (NORVASC) 10 mg tablet Take 1 tablet (10 mg total) by mouth 1 (one) time each day. 05/23/2024 active cetirizine (ZyrTEC) 10 mg tablet Take 1 tablet (10 mg total) by mouth 1 (one) time each day. 05/03/2024 active fluticasone propionate (FLONASE) 50 mcg/actuation nasal spray Administer 1 spray into each nostril 2 (two) times a day. Shake gently. Before first use, prime pump. After use, clean tip and replace cap. 05/03/2024 active albuterol HFA (ProAir HFA) 90 mcg/actuation inhaler Inhale 2 puffs by mouth every 4 (four) hours if needed for wheezing or shortness of breath. 04/23/2024 active triamcinolone (KENALOG) 0.025 % cream Apply as needed 2times daily not more than 1 week 03/07/2024 active acetaminophen (TYLENOL 8 HOUR) 650 mg 8 hr tablet Take 1 tablet (650 mg total) by mouth every 8 (eight) hours if needed. 03/12/2021 active ascorbic acid, vitamin C, 500 mg capsule Take 1 capsule by mouth. active atorvastatin (LIPITOR) 10 mg tablet Take 1 tablet (10 mg total) by mouth 1 (one) time each day. active B complex tablet Take 1 tablet by mouth 1 (one) time each day. active cholecalciferol, vitamin D3, 10 mcg (400 unit) tablet,chewable Chew 1 tablet 1 (one) time each day. 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 ProblemAct [facility] Hypertension active 2021-04-20 ProblemAct [facility] Obesity (BMI 30.0-34.9) active 2019-11-29 ProblemAct [facility] Nuclear sclerosis active 2011-02-15 ProblemAct [facility] Tubular adenoma of colon active 2021-03-24 ProblemAct [facility] H/O: hysterectomy active 2012-04-23 ProblemAct [facility] Atherosclerosis active 2024-12-[address] [facility] H/O: hysterectomy active 2012-04-23 ProblemAct [facility] Hyperlipidemia active 2012-01-07 ProblemAct [facility] Immunizations Vaccine Date Source Lot Number Status Influenza trivalent, 0.5mL ( Fluzone High-dose) 65yo and older [id number] comple maryanne Influenza trivalent, 0.5mL, preservative free (Fluarix; FluLaval; Fluzone) ages 6mo and older (Afluria) 3 years and older 01/24/2023 [facility] completed Influenza trivalent, 0.5mL, preservative free (Fluarix; FluLaval; Fluzone) ages 6mo and older (Afluria) 3 years and older 02/07/2022 [facility] completed Tdap Tetanus diptheria acell ular pertussis (Boostrix; Adacel) 7yo and older 02/07/2022 [facility] [id number] completed Zoster recombinant (Shingrix ) 19yo and older 04/13/2021 [facility] [id number] completed Influenza trivalent, 0.5mL, preservative free (Fluarix; FluLaval; Fluzone) ages 6mo and older (Afluria) 3 years and older 03/19/2021 [facility] completed Zoster recombinant (Shingrix ) 19yo and older 12/17/2020 [facility] [id number] completed [email or web address] SARS-CoV-2 COVID-19, mRNA, LNP-S, preservative free 08/27/2020 [facility] [id number] completed [email or web address] SARS-CoV-2 COVID-19, mRNA, LNP-S, preservative free 08/06/2020 [facility] [id number] completed Influenza Quadravalent, MDCK , 0.5ml, preservative free (Flucelvax) 6mo and older 01/29/2020 [id number] completed Influenza Quadravalent, MDCK , 0.5ml, preservative free (Flucelvax) 6mo and older 03/19/2019 [facility] [id number] completed Influenza Quadravalent, MDCK , 0.5ml, preservative free (Flucelvax) 6mo and older 02/14/2017 [facility] [id number] completed Influenza trivalent, 0.5mL, preservative free (Fluarix; FluLaval; Fluzone) ages 6mo and older (Afluria) 3 years and older 02/02/2016 [facility] [id number] completed Influenza trivalent, 0.5mL, preservative free (Fluarix; FluLaval; Fluzone) ages 6mo and older (Afluria) 3 years and older 04/16/2012 [facility] [id number] completed Tdap Tetanus diptheria acell ular pertussis (Boostrix; Adacel) 7yo and older 12/19/2011 [facility] [id number] completed Td Tetanus diptheria (Tdvax) 7yo and older 06/26/2002 [facility] completed
--- OUTSIDE RECORDS SUMMARY | 2025-05-12 17:21 | XMS_ITS | Encounter Summary ---
Author Organization [facility] Address [address] [place] [address] Care Team Providers Care Ground Support Equipment Fitter Name Role Phone Florencia Traore MD Primary Care Provider [phone] Encounter Details Date Type Department Care Team (Late Contact Info) Description 03/19/2025 Results Follow-Up [address] [place] [phone] Donna Daniel RN Social History Tobacco Use [...] AM EST Office Visit Internal Medicine - [address] [phone] Scott Reddy NP [address] [place] [address] 09/16/2025 1:00 PM EDT Office Visit Infectious Disease [facility] 175 [facility] [address] [place] [phone] Stephie Neely MD 175 [facility] [address] [place] [address] documented as of this encounter Visit Diagnoses Not on filedocumented in this encounter Care Teams Ground Support Equipment Fitter Relationship Specialty Start Date End Date Florencia Traore MD [address] [place] [phone] PCP - General Internal Medicine 02/07/25 documented as of this encounter
--- OUTSIDE RECORDS SUMMARY | 2025-05-12 17:21 | XMS_ITS | Encounter Summary ---
Author Organization [facility] Address [address] [place] [address] Care Team Providers Care Bronze Plater Name Role Phone Florencia Traore MD Primary Care Provider [phone] Encounter Details Date Type Department Care Team (Late st Contact Info) Description 03/20/2025 Results Follow-Up Internal Medicine - [address] [phone] Theresa Bourne MA Social History Tobacco Use [...] AM EST Office Visit Internal Medicine - [address] [phone] Scott Reddy NP [address] [place] [address] 09/16/2025 1:00 PM EDT Office Visit Infectious Disease - [place] [address] [phone] Stephie Neely MD [address] [address] documented as of this encounter Visit Diagnoses Not on filedocumented in this encounter Care Teams Bronze Plater Relationship Specialty Start Date End Date Florencia Traore MD [address] [facility] [phone] PCP - General Internal Medicine 02/07/25 documented as of this encounter
--- OUTSIDE RECORDS SUMMARY | 2025-05-12 17:21 | XMS_ITS | Clinical Summary ---
Author Organization [address] [place] [address] [place] [phone] Phone Care Team Providers Care Process Planner Name Role Phone Florencia Traore MD Primary Care Provider [phone] Allergies Active Allergy Reactions Criticality Noted Date [...] wheezing or shortness of breath. 8.5 g 4 Active cholecalciferol, vitamin D3, 10 mcg (400 unit) tablet,chewable Chew 1 tablet 1 (one) time each day. Active acetaminophen (TYLENOL 8 HOUR) 650 mg 8 hr tablet Take 1 tablet (650 mg total) by mouth every 8 (eight) hours if needed. 1 Active cetirizine (ZyrTEC) 10 mg tablet Take 1 tablet (10 mg total) by mouth 1 (one) time each day. 14 each 4 Active fluticasone propionate (FLONASE) 50 mcg/actuation nasal spray Administer 1 spray into each nostril 2 (two) times a day. Shake gently. Before first use, prime pump. After use, clean tip and replace cap. 16 g 4 Active diclofenac (Cataflam) 50 mg tablet Take 1 tablet (50 mg total) by mouth 2 (two) times a day for 10 days. 20 each 5 Active methocarbamoL (ROBAXIN) 500 mg tablet Take 1 tablet (500 mg total) by mouth at bedtime as needed for muscle spasms. 30 tablet 5 Active triamcinolone (KENALOG) 0.025 % creamIndications :Eczema, unspecified type Apply topically 1 (one) time each day if needed for irritation. 30 g 5 Active aspirin 81 mg chewable tabletIndication s:Atherosclerosi s Chew 1 tablet (81 mg total) 1 (one) time each day. 90 each 1 5 Active atorvastatin (LIPITOR) 10 mg tabletIndication s:Hyperlipidemia , unspecified TAKE 1 TABLET BY MOUTH 1 TIME EACH DAY. 90 tablet 1 5 Active amLODIPine (NORVASC) 10 mg tablet TAKE 1 TABLET BY MOUTH EVERY DAY 90 tablet 1 5 Active amoxicillin (AMOXIL) 500 mg capsule TAKE 1 CAPSULE BY MOUTH EVERY 6 HOURS UNTIL FINISHED 5 Active tretinoin (RETIN-A) 0.1 % cream APPLY PEA-SIZED AMOUNT TO FACE AT BEDTIME 4 Active triamcinolone (KENALOG) 0.1 % ointment APPLY TO ARMS/ABDOMEN/LE GS 2X/DAY NEEDED FOR FLARES, DECREASE TO EVERY OTHER DAY W/IMPROVEMENT 5 Active Active Problems Problem Noted Date Diagnosed Date [...] Encounters Date Type Department Care Team Description 04/28/2025 Telephone Infectious Disease - [facility] [address] [place] [address] Stevan Draper MA 04/03/2025 6:20 PM EST - 04/03/2025 11:59 PM EST Hospital Encounter Radiology Department - [address] [place] [address] Intervertebral disc disorders with radiculopathy, lumbar region Discharge Disposition: Home or Self Care 03/20/2025 Results Follow-Up Internal Medicine - [address] [phone] Theresa Bourne MA 03/19/2025 8:56 AM EST - 03/19/2025 11:59 PM EST Hospital Encounter Radiology Department - [address] [phone] Encounter for screening mammogram for breast cancer Discharge Disposition: Home or Self Care 03/19/2025 Results Follow-Up Infectious Disease - [address] [phone] Donna Daniel RN 03/13/2025 1:50 PM EDT Lab Draw Station - [address] [place] [phone] 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 PM EDT Office Visit Infectious Disease - [address] [phone] Stephie Neely MD Late latent syphilis (Primary Dx) from Last 3 Months Immunizations Immunization Administration [...] Ectopic Multiple Livin g Live Births 1 1 1 1 Date Outcome GA Total Labor Labor/2nd/3rd [...] AM EST Office Visit Internal Medicine - [address] [phone] Scott Reddy, AMISHA [address] [place] [address] 09/16/2025 1:00 PM EDT Office Visit Infectious Disease - [place] [address] [phone] Stephie Neely MD 175 [facility] [address] [place] [address] Health Maintenance Due Date Last Done Comments [...] Procedure Name Priority Date/Time Associated Diagnosis Comments MR LUMBAR SPINE WO CONTRAST Routine 04/03/2025 8:03 PM EST Intervertebral disc disorders with radiculopathy, lumbar region MG MAMMO DIGITAL SCREENING W NITO BILAT Routine 03/19/2025 9:09 AM EST Encounter for screening mammogram for breast cancer TREPONEMA PALLIDUM ANTIBODY Routine 03/13/2025 1:46 PM EDT Late latent syphilis RAPID PLASMA REAGIN WITH REFLEX TO TITER Routine 03/13/2025 1:46 PM EDT Late latent syphilis TREPONEMA PALLIDUM ANTIBODY WITH REFLEX TO RPR AND PARTICLE AGGLUTINATION Routine 03/13/2025 1:46 PM EDT Late latent syphilis COMPREHENSIVE METABOLIC PANEL Routine 12/19/2024 1:00 PM EDT Hyperlipidemia, unspecified hyperlipidemia type Primary hypertension LIPID PANEL WITH REFLEX TO DIRECT LDL Routine 12/19/2024 1:00 PM EDT Hyperlipidemia, unspecified hyperlipidemia type HEPATITIS C ANTIBODY Routine 06/04/2024 3:29 PM EST Positive serology for syphilis Late latent syphilis HM COLONOSCOPY Routine 03/16/2021 from Last 3 Months or Most Recently Relevant to Health Maintenance Results * MR Lumbar Spine wo Contrast (04/03/2025 8:03 PM EST) Anatomical Region Laterality Modality L-spine, Spine Magnetic Resonan ce 04/09/2025 4:09 PM EST Impressions 04/09/2025 4:17 PM EST Impression: Multilevel degenerative changes of the lumbar spine with moderate spinal canal stenosis at L2-L3, L3-L4 and L4-L5. -------- FINAL REPORT -------- Dictated By: Karina Frederick Dictated Date: 04/09/2025 16:09 ET Assigned Physician: Karina Frederick Reviewed and Electronically Signed By: Karina Frederick Signed Date: 04/09/2025 16:17 ET Workstation ID: [id number] Transcribed By: Self Edit Transcribed Date: 04/09/2025 16:09 ET Narrative 04/09/2025 4:17 PM EST MRI LUMBAR SPINE Clinical Statement: low back pain Comparison: None Technique: Multiplanar, multisequence MRI images of the lumbar spine were obtained without intravenous contrast. Findings: There is normal lumbar lordosis. There is preservation of vertebral body height. Mildly heterogeneous vertebral body marrow signal consistent with degenerative changes. Disc desiccation at multiple levels with disc height loss at L2-L3, L3-L4 and L4-L5. Cord signal is normal. The conus medullaris is normal in signal characteristics and morphology and terminates at the L1-2 level. T12-L1: No neuroforaminal or spinal canal stenosis seen on the sagittal view L1-L2: Broad-based disc bulge, facet hypertrophy, ligamentum flavum hypertrophy with mild bilateral neuroforaminal stenosis and mild spinal canal stenosis L2-L3: Broad-based disc bulge and central disc protrusion, facet hypertrophy, ligamentum flavum hypertrophy with moderate bilateral neuroforaminal stenosis and moderate spinal canal stenosis L3-L4: Broad-based disc bulge eccentric to the left, facet arthropathy and hypertrophy, ligamentum flavum hypertrophy with moderate bilateral neuroforaminal stenosis and moderate spinal canal stenosis. There is severe narrowing of the bilateral neural foramen. L4-L5: Broad-based disc bulge and central disc protrusion, facet arthropathy and hypertrophy, extensive ligamentum flavum hypertrophy resulting in moderate left and moderate to severe right neuroforaminal stenosis and moderate spinal canal stenosis L5-S1: Broad-based disc bulge and central disc protrusion, facet arthropathy and hypertrophy, ligamentum flavum hypertrophy with moderate bilateral neuroforaminal stenosis and mild spinal canal stenosis Procedure Note Karina Frederick MD - 04/09/2025 MRI LUMBAR SPINE Clinical Statement: low back pain Comparison: None Technique: Multiplanar, multisequence MRI images of the lumbar spine wereobtained without intravenous contrast. Findings: There is normal lumbar lordosis. There is preservation ofvertebral body height. Mildly heterogeneous vertebral body marrow signalconsistent with degenerative changes. Disc desiccation at multiple levelswith disc height loss at L2-L3, L3- L4 and L4-L5. Cord signal is normal.The conus medullaris is normal in signal characteristics and morphologyand terminates at the L1-2 level. T12-L1: No neuroforaminal or spinal canal stenosis seen on the sagittalview L1-L2: Broad-based disc bulge, facet hypertrophy, ligamentum flavumhypertrophy with mild bilateral neuroforaminal stenosis and mild spinalcanal stenosis L2-L3: Broad-based disc bulge and central disc protrusion, facethypertrophy, ligamentum flavum hypertrophy with moderate bilateralneuroforaminal stenosis and moderate spinal canal stenosis L3-L4: Broad-based disc bulge eccentric to the left, facet arthropathy andhypertrophy, ligamentum flavum hypertrophy with moderate bilateralneuroforaminal stenosis and moderate spinal canal stenosis. There issevere narrowing of the bilateral neural foramen. L4-L5: Broad-based disc bulge and central disc protrusion, facetarthropathy and hypertrophy, extensive ligamentum flavum hypertrophyresulting in moderate left and moderate to severe right neuroforaminalstenosis and moderate spinal canal stenosis L5-S1: Broad-based disc bulge and central disc protrusion, facetarthropathy and hypertrophy, ligamentum flavum hypertrophy with moderatebilateral neuroforaminal stenosis and mild spinal canal stenosis IMPRESSION: Impression: Multilevel degenerative changes of the lumbar spine with moderate spinalcanal stenosis at L2-L3, L3-L4 and L4-L5. -------- FINAL REPORT -------- Dictated By: Karina Frederick Dictated Date: 04/09/2025 16:09 ET Assigned Physician: Karina Frederick Reviewed and Electronically Signed By: Karina Frederick Signed Date: 04/09/2025 16:17 ET Workstation ID: [id number] Transcribed By: Self Edit Transcribed Date: 04/09/2025 16:09 ET us Leoncio BONILLA IMG MRI PROCEDURES Final Resul t * MG Mammo Digital Screening w Nito bilat (03/19/2025 9:09 AM EST) Anatomical Region Laterality Modality Breast Bilateral Mammography 03/20/2025 11:2 8 AM EST Impressions 03/20/2025 11:28 AM EST No mammographic evidence of malignancy. BREAST DENSITY: B - There are scattered areas of fibroglandular density. BI-RADS CATEGORY: 1 - NEGATIVE RECOMMENDATION: Screening bilateral mammogram is recommended in 1 year. MAMMO LOCATION: [facility], [address] [place] [address], [id number], . -------- FINAL REPORT -------- Dictated By: Crystal Wells Dictated Date: 03/20/2025 11:28 ET Assigned Physician: Crystal Wells Reviewed and Electronically Signed By: Crystal Wells Signed Date: 03/20/2025 11:28 ET Workstation ID: [id number] Transcribed By: Self Edit Transcribed Date: 03/20/2025 [...] is recommended in 1 year. MAMMO LOCATION: [facility], [address] [place] [address], [id number], . -------- FINAL REPORT -------- Dictated By: Crystal Wells Dictated Date: 03/20/2025 11:28 ET Assigned Physician: Crystal Wells Reviewed and Electronically Signed By: Crystal Wells Signed Date: 03/20/2025 11:28 ET Workstation ID: [id number] Transcribed By: Self Edit Transcribed Date: 03/20/2025 11:28 ET us Uizel Guerrero MD IMG BI PROCEDURES Final R esult * (ABNORMAL) Treponema pallidum antibody with reflex to RPR and particle agglutination (03/13/2025 1:46 PM EDT) Pathologist [facility] T. Pallidum Antibodies Positive( A) Negative LAB CHEMISTRY METHOD 03/13/2025 6:42 PM EDT [facility] Blood Venous blood specimen / Unknown Venipuncture / Unknown 03/13/2025 1:46 PM EDT 03/13/2025 1:46 PM EDT us Stephie Neely MD LAB BLOOD ORDERABLES Final Resul t Performing Organization Address [facility]/ZIP Co de Phone Number [facility] [address] [place] [address], [place] [phone] * Rapid plasma reagin with reflex to titer (03/13/2025 1:46 PM EDT) [facility] RPR Nonreactive Nonreactive 2025 1:26 PM EDT [facility] Blood Venous blood specimen / Unknown Venipuncture / Unknown 03/13/2025 1:46 PM EDT 03/13/2025 6:42 PM EDT us Stephie Neely MD LAB BLOOD ORDERABLES Final Resul t Performing Organization Address City/[facility]/ZIP Co de Phone Number [facility] [address] [place] [address], [place] [phone] * (ABNORMAL) Treponema pallidum antibody (03/13/2025 1:46 PM EDT) Pathologist [facility] Treponema pallidum Antibody (TP-PA) Reactive( A) Nonreactive 03/17/2025 1:25 PM EST [facility] Comment: Test performed at [facility], [facility] [place] [address] [address] [place] [address] Catherine Pascual MD, PhD - Motor Equipment Sergeant Blood Venous blood specimen / Unknown Venipuncture / Unknown 03/13/2025 1:46 PM EDT 2025 1:25 PM EDT us Stephie Neely MD LAB BLOOD ORDERABLES Final Resul t [facility] [address] [place] [address] * Lipid panel with reflex to direct LDL (12/19/2024 1:00 PM EDT) Cholesterol 166 0 - 200 mg/dL LAB CHEMISTRY METHOD 12/19/2024 4:49 PM EDT [facility] Triglycerides 32 0 - 150 mg/dL LAB CHEMISTRY METHOD 12/19/2024 4:49 PM EDT [facility] HDL 72 >=40 mg/dL LAB CHEMISTRY METHOD 12/19/2024 4:49 PM EDT [facility] LDL Calculated 88 0 - 100 mg/dL LAB CHEMISTRY METHOD 12/19/2024 4:49 PM EDT [facility] Comment:Estimated LDL Calcul ated using equation: Total cholesterol - HDL cholesterol - (Triglycerides/5) VLDL Cholesterol Román 6.4 mg/dL LAB CHEMISTRY METHOD 12/19/2024 4:49 PM EDT [facility] Non HDL Chol. (LDL+VLDL) 94 <145 mg/dL LAB CHEMISTRY METHOD 12/19/2024 4:49 PM EDT [facility] Chol/HDL Ratio 2.3 0.0 - 4.4 LAB CHEMISTRY METHOD 12/19/2024 4:49 PM EDT [facility] Blood Venous blood specimen / Unknown Venipuncture / Unknown 12/19/2024 1:00 PM EDT 12/19/2024 1:00 PM EDT us Scott Jarihi DIRECTOR [employer]OR [employer]ANDARDS LAB BLOOD ORDERABLES Final Res ult [facility] [address] [place] [address], * (ABNORMAL) Comprehensive metabolic panel (12/19/2024 1:00 PM EDT) Sodium 141 133 - 145 mmol/L LAB CHEMISTRY METHOD 12/19/2024 4:46 PM EDT [facility] Potassium 4.2 3.5 - 5.5 mmol/L LAB CHEMISTRY METHOD 12/19/2024 4:46 PM [facility] Chloride 107 96 - 110 mmol/L LAB CHEMISTRY METHOD 12/19/2024 4:46 PM [facility] CO2 31 21 - 32 mmol/L LAB CHEMISTRY METHOD 12/19[facility]2024 4:46 [facility] Anion Gap 3 3 - 11 LAB CHEMISTRY METHOD 12/19/2024 4:46 PM [facility] Glucose 85 70 - 100 mg/dL LAB CHEMISTRY METHOD 12/19/2024 4:46 PM [facility] BUN 15 5 - 25 mg/dL LAB CHEMISTRY METHOD 12/19/2024 4:46 PM [facility] Creatinine 0.40(L) 0.50 - 1.10 mg/dL LAB CHEMISTRY METHOD 12/19/2024 4:46 PM [facility] eGFR 110 >=60 mL/min/1. 73m2 LAB CHEMISTRY METHOD 12/19/2024 4:46 PM [facility] Comment:Calculation based on the Chronic Kidney Disease Epidemiology Collaboration (CKD-EPI) equation refit without adjustment for race. BUN/Creatinine Ratio 37.5 LAB CHEMISTRY METHOD 12/19/2024 4:46 PM [facility] Calcium 9.2 8.5 - 10.5 mg/dL LAB CHEMISTRY METHOD 12/19/2024 4:46 PM EDT [facility] AST (SGOT) 17 10 - 42 unit/L LAB CHEMISTRY METHOD 12/19/2024 4:46 PM EDT [facility] ALT (SGPT) 25 10 - 60 unit/L LAB CHEMISTRY METHOD 12/19/2024 4:46 PM EDT [facility] Alkaline Phosphatase 91 42 - 121 unit/L LAB CHEMISTRY METHOD 12/19/2024 4:46 PM EDT [facility] Total Protein 6.7 6.0 - 8.0 g/dL LAB CHEMISTRY METHOD 12/19/2024 4:46 PM EDT [facility] Albumin 3.9 3.2 - 5.0 g/dL LAB CHEMISTRY METHOD 12/19/2024 4:46 PM EDT [facility] Total Bilirubin 0.4 0.0 - 1.4 mg/dL LAB CHEMISTRY METHOD 12/19/2024 4:46 PM EDT [facility] Blood Venous blood specimen / Unknown Venipuncture / Unknown 12/19/2024 1:00 PM EDT 12/19/2024 1:00 PM EDT us Scott Reddy NP LAB BLOOD ORDERABLES Final Res ult Performing Organization Address [facility]/ZIP Co de Phone Number [facility] [address] [place] [address], * Hepatitis C antibody (06/04/2024 3:29 PM EST) Hepatitis C Antibody Negative Negative LAB CHEMISTRY METHOD 06/04/2024 7:50 PM EST [facility] Blood Venous blood specimen / Unknown Venipuncture / Unknown 06/04/2024 3:29 PM EST 06/04/2024 3:29 PM EST us Stephie Neely MD LAB BLOOD ORDERABLES Final Resul t [facility] [address] [place] [address], * Colonoscopy (03/16/2021) Colonoscopy completed Anatomical Region Laterality Modality Other us Historical Provider MD HEALTH MAINTENANCE Final Result from Last 3 Months or Most Recently Relevant to Health Maintenance Insurance [facility] [address] [place] [address] MEDICARE Care Teams Process Planner Relationship Specialty Start Date End Date Florencia Traore MD [address] [place] PCP - General Internal Medicine 02/07/25
== END 2025-05-12 16:01 | disposition home or self-care (01) ==
LOC: HO.HPHYS 15:06
PROVIDERS: PCP Nurse Practitioner Primary Care; Visit Provider Physician Assistant
DX: M54.16 Radiculopathy, lumbar region (principal); M47.816 Spondylosis without myelopathy or radiculopathy, lumbar region; M54.51 Vertebrogenic low back pain
CPT/HCPCS: 99213